=== PATIENT | male | born 2005 | race Two or more races ===

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

== ENCOUNTER 2024-03-23 22:25 | Emergency (ER) | payer MEDICAID ==
--- NOTE | 2024-03-23 23:28 | ED Physician Documentation ---
PD HPI UPPER EXT INJURY - Stated complaint Stated Complaint: BILATERAL HAND PX - Chief complaint Chief Complaint: Ext Problem - History obtained from History obtained from: Patient - Additonal information Additional information: HPI from patient. Patient complains of pain of his right pointer finger, left middle finger. This pain was of sudden onset at the beginning of this month when both of the fingers jammed against a base as he was sliding during a baseball game. Patient is right hand dominant. The pain has been waxing and waning since then, and he is continued to play baseball. He felt that the pain was slowly improving and thus he has not sought medical attention for these injuries until tonight. He presents at this time due to the pain becoming worse over the past 1-2 days. Pain is worse with flexion of either digit. Denies numbness, weakness. He indicates the pain of both of the digits is around the PIP joints. PD PAST MEDICAL HISTORY - Past Medical History Past Medical History: Yes Cardiovascular: None Respiratory: None Neuro: None Endocrine/Autoimmune: None GI: None : None HEENT: None Psych: ADD/ADHD Musculoskeletal: None Derm: None - Past Surgical History Past Surgical History: Yes General: Appendectomy HEENT: Tonsil/Adenoidectomy - Present Medications Home Medications: Ambulatory Orders Medication Instructions Recorded Confirmed No Known Home Medications 03/23/24 03/23/24 - Allergies Allergies/Adverse Reactions: Allergies Allergy/AdvReac Type Severity Reaction Status Date / Time No Known Drug Allergies Allergy Verified 03/23/24 22:35 - Social History Does the pt smoke?: No Smoking Status: Never smoker Does the pt drink ETOH?: No Does the pt have substance abuse?: No - Immunizations Immunizations are current?: Yes - POLST Patient has POLST: No PD ED PE NORMAL - Vitals Vital signs reviewed: Yes - General General: Alert and oriented X 3, No acute distress, Well developed/nourished - Extremities Extremities: No deformity, No tenderness to palpate, Normal ROM s pain - Neuro Neuro: No motor deficit (full ROM and strength of right second (pointer) finger and left third (middle) finger with both flexion and extension (flexion tested with isolation of MCP, PIP, and DIP joints)), No sensory deficit Results - Vitals Vitals: Vital Signs - 24 hr 03/23/24 03/23/24 22:27 23:54 Temperature 36.7 C Heart Rate 57 L 60 Respiratory 15 16 Rate Blood Pressure 106/58 L 110/60 O2 Saturation 100 98 Oxygen O2 Source Room air - Rads (name of study) bilateral hand xrays Relevant Findings:: Prelim report reviewed, See rad report PD Medical Decision Making - ED course Complexity details: reviewed results, considered differential, d/w patient ED course: Normal plain-film xrays (bilateral hands) and no concerning findings on physical exam; FROM in flexion and extension of the involved digits. Results d/w patient, advised to avoid sports/baseball for one week. Presumed diagnosis is finger sprain Departure - Departure Disposition: Home, Self Care Clinical Impression: Sprain, finger Condition: Good Instructions: ED Sprain Finger Comments: There are no abnormalities on tonight's x-rays; specifically, no evidence of dislocation or fracture/break. As we discussed, your description of symptoms and lack of abnormal findings on physical exam support the diagnosis of finger sprain (which does not show up on x-rays). Contact your primary care provider's office in the morning when they are open to arrange for a follow-up/reevaluation appointment ideally with in 5 to 7 days. Forms: Activity restrictions Discharge Date/Time: 03/23/24 23:56
--- NOTE | 2024-03-23 23:42 | XRAY Report ---
PROCEDURE: Hand 3+V LT INDICATIONS: PAIN/TENDERNESS R 2nd digit TECHNIQUE: 3 views of the hand acquired. COMPARISON: Left hand radiographs 06/27/2020. FINDINGS: Bones: No acute fractures or dislocations. No suspicious bony lesions. Soft tissues: No suspicious soft tissue calcifications. IMPRESSION: No acute osseous abnormality. If there is clinical concern or persistent symptoms, additional imaging such as repeat radiographs or advanced imaging (e.g. CT, MRI) may be helpful for further evaluation. Reviewed by: Neno Novak MD on 03/23/2024 11:40 PM PDT Approved by: Neno Novak MD on 03/23/2024 11:40 PM PDT Station ID: [id number]
--- NOTE | 2024-03-23 23:44 | XRAY Report ---
PROCEDURE: Hand 3+V RT INDICATIONS: PAIN/TENDERNESS L 3rd digit TECHNIQUE: 3 views of the hand acquired. COMPARISON: None. FINDINGS: Bones: No acute fractures or dislocations. No suspicious bony lesions. Soft tissues: No suspicious soft tissue calcifications. IMPRESSION: No acute cardiopulmonary abnormality. Reviewed by: Neno Novak MD on 03/23/2024 11:43 PM PDT Approved by: Neno Novak MD on 03/23/2024 11:43 PM PDT Station ID: [id number]
[2024-03-24 00:09] VITALS: BP 110/60; O2SAT 98
== END 2024-03-23 23:56 | disposition home or self-care (01) ==
LOC: ED 22:25
DX: S63.610A Unspecified sprain of right index finger, initial encounter (principal); S63.613A Unspecified sprain of left middle finger, initial encounter; W21.89XA Striking against or struck by other sports equipment, initial encounter; Y93.64 Activity, baseball; Y92.320 Baseball field as the place of occurrence of the external cause
CPT/HCPCS: 99283